=== PATIENT | male | born 1960 | race Caucasian/White ===

== ENCOUNTER 2016-10-05 06:54 | Emergency (ER) | payer OTHER ==
[~2016-10-05] VITALS: Ht 195.6 cm; Wt 122.5 kg
[~2016-10-05 06:54] MED LIST: PERCOCET 325 MG1 TA2 PO; SEROQUEL (MONO200 MG PO; SEROQUEL 25MG25 MG PO
--- NOTE | 2016-10-05 07:29 | ED GI/GU/ABDOMINAL COMPLAINT ---
History of Present Illness General Chief Complaint: General Adult Stated Complaint: " I BELIEVE I HAVE KIDNEY STONES" Source: patient Exam Limitations: no limitations Vital Signs & Intake/Output Vital Signs & Intake/Output Vital Signs Date Time Temp Pulse Resp B/P Pulse O2 O2 Flow FiO2 Ox Delivery Rate 10/05 0956 98.6 83 117/77 98 10/05 0706 96.8 128 20 118/60 97 Room Air Room Air Allergies Coded Allergies: hydrocodone (Intermediate, NAUSEA 10/05/16) Reconcile Medications Ibuprofen 800 MG TABLET 1 TAB PO TID PRN PAIN Oxycodone HCl/Acetaminophen (Percocet 5-325 MG Tablet) 5 MG-325 MG TABLET 1 TAB PO Q4-6 PRN BREAKTHROUGH PAIN Oxycodone HCl/Acetaminophen (Percocet 5-325 MG Tablet) 5 MG-325 MG TABLET 1 TAB PO Q4-6 PRN PAIN Quetiapine Fumarate (Seroquel) 200 MG TABLET 1 TAB PO QPM UNKNOWN (Reported) Quetiapine Fumarate (Seroquel) 25 MG TABLET 1 TAB PO QAM UNKNOWN (Reported) Tamsulosin HCl (Flomax) 0.4 MG CAP.ER.24H 1 CAP PO DAILY KIDNEY STONE Triage Note: PT TO ED WITH C/O RIGHT FLANK PAIN X 1 MONTH "I HAVE A KIDNEY STONE ON THE RIGHT FOR THE LAST YEAR AND NOW IT'S MOVING AROUND". LAST WEEK N/V/D, DENIES AT THIS TIME. Triage Nurses Notes Reviewed? yes Onset: Gradual Duration: waxing and waning, one month Timing: recent history Quality/Severity: sharpness, severe Location: right flank Radiation: RLQ Prior Abdominal Problems: similar symptoms Modifying Factors: Improves With: other (pain medication). HPI: This is a 56-year-old male with history of hypertension on metoprolol presents to the ER with chief complaint of right flank pain 1 month in duration. He states symptoms are fluctuating. Last week he had an episode of nausea and vomiting. He states he has an appointment to see ill health on Friday. He was prescribed Percocet by a doctor a few days ago but states he ran out and now he has nothing for the pain. Patient denies any fever or chills. Pain is in the right flank and radiates to his right lower quadrant. No diarrhea. No urinary symptoms. History of previous renal stone but no history of previous lithotripsy or stent. Past History Travel History Traveled to [place] past 21 day No Medical History Any Pertinent Medical History? 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 No Review of Systems Review of Systems Constitutional: Denies: chills, fever. EENTM: Reports: no symptoms. Respiratory: Denies: cough, short of breath. Cardiovascular: Denies: chest pain, palpitations. GI: Reports: abdominal pain, nausea, vomiting. Genitourinary: Denies: dysuria, frequency, hematuria. Musculoskeletal: Reports: no symptoms. Skin: Reports: no symptoms. Neurological/Psychological: Reports: no symptoms. Hematologic/Endocrine: Denies: bruising, bleeding, polyuria, polydipsia. Immunologic/Allergic: Denies: splenectomy. All Other Systems: Reviewed and Negative Physical Exam Physical Exam General Appearance: well developed/nourished, alert, awake, mild distress, obese Head: atraumatic, normal appearance Eyes: Bilateral: normal appearance, PERRL, EOMI. Ears, Nose, Throat, Mouth: hearing grossly normal, moist mucous membrane Neck: normal inspection, supple, full range of motion Respiratory: normal breath sounds, chest non-tender, no respiratory distress Cardiovascular: regular rate/rhythm Peripheral Pulses: 2+ radial (R), 2+ radial (L) Gastrointestinal: normal bowel sounds, soft, non-tender Back: CVA tenderness (L) Extremities: normal range of motion Neurologic/Psych: no motor/sensory deficits, awake, alert, oriented x 3, normal gait Skin: intact, normal color, warm/dry Core Measures ACS in differential dx? No Severe Sepsis Present: No Septic Shock Present: No Progress Differential Diagnosis: ureterolithiasis, UTI/pyelo Plan of Care: Orders Procedure Date/time Status COMPREHENSIVE METABOLIC PANEL 10/05 732 Complete CBC WITHOUT DIFFERENTIAL 10/05 732 Complete URINALYSIS 10/05 725 Complete Laboratory Tests 10/05/16 0924: Urinalysis HEAVY H, Urine Color YEL, Urine Clarity HAZY H, Urine pH 6.5, Ur Specific [place] 1.025, Urine Protein 30 H, Urine Ketones TRACE H, Urine Nitrite POS H, Urine Bilirubin NEG@ICTO, Urine Urobilinogen 1.0, Ur Leukocyte Esterase TRACE H, Ur Microscopic SEDIMENT EXAMINED, Urine RBC 1-3, Urine WBC 3- 5 H, Ur Epithelial Cells RARE, Urine Crystals 3+ CA OX H, Hyaline Casts 1-3 H , Granular Casts 1-3 H, Urine Mucus MOD H, Urine Hemoglobin TRACE-INTACT H, Urine Glucose NEG 10/05/16 0758: Anion Gap 15, Estimated GFR > 60, BUN/Creatinine Ratio 12.5, Glucose 149 H, Calcium 9.5, Total Bilirubin 1.0, AST 193 H, ALT 109 H, Alkaline Phosphatase 108, Total Protein 7.2, Albumin 3.3 L, Globulin 3.9, Albumin/Globulin Ratio 0.8 L, CBC w Diff NO MAN DIFF REQ, RBC 4.37 L, MCV 98.7 H, MCH 33.6 H, RDW 13.5, MPV 7.4, Gran % 72.9, Lymphocytes % 15.0 L, Monocytes % 7.7, Eosinophils % 3.5, Basophils % 0.9, Absolute Granulocytes 6.4, Absolute Lymphocytes 1.3, Absolute Monocytes 0.7 H, Absolute Eosinophils 0.3, Absolute Basophils 0.1, PUBS MCHC 34.0 LABS, U/S, TORADOL 60 MG IM. (CESILIA NICHOLE,NINOSKA) Diagnostic Imaging: Viewed by Me: Ultrasound. Discussed w/RAD: Ultrasound. Initial ED EKG: none Comments: PATIENT: NEO MCKEON PRESENT AGE: 56 PATIENT ACCOUNT NO: [id number] : 62 LOCATION: [facility] ORDERING PHYSICIAN: NINOSKA LOMAS MD SERVICE DATE: 10/05/16 EXAM TYPE: US - US-RENAL/KIDNEY EXAMINATION: US RETROPERITONEAL COMPLETE (RENAL) CLINICAL INFORMATION: Right flank pain for one month. COMPARISON: Abdominal ultrasound 11/05/2007 TECHNIQUE: Real-time imaging of the kidneys and bladder. Visualization is limited FINDINGS: RIGHT KIDNEY: 11.3 x 6.5 x 6.1 cm (SAG x AP x TRV). The kidney is normal in size, contour, and echogenicity. Renal cortical thickness is normal. No calculi or focal parenchymal lesions. No hydronephrosis. LEFT KIDNEY: 14.0 x 5.7 x 5.6 cm (SAG x AP x TRV). The kidney is normal in size, contour, and echogenicity. Renal cortical thickness is normal. Slight outward bulge of the upper pole cortex is noted but a discrete mass is not defined on these images. This could be related to a dromedary hump.. No calculi or focal parenchymal lesions noted on these images.. No hydronephrosis. BLADDER: Partially filled and normal. Bilateral ureteral jets are not demonstrated. Prevoid bladder volume is 48 mL. . IMPRESSION: No hydronephrosis or other acute abnormality is seen on the renal ultrasound. Detail is limited. DICTATED BY: RYAN COLORADO MD DATE/TIME DICTATED:10/05/16840 NURSE CLINICAL:KVNG DATE/TIME TRANSCRIBED:10/05/16840 CONFIDENTIAL, DO NOT COPY WITHOUT APPROPRIATE AUTHORIZATION. <Electronically signed in Other Vendor System> SIGNED BY: RYAN COLORADO MD 10/05 0854 Departure Departure Time of Disposition: 1015 Disposition: HOME OR SELF CARE Condition: Stable Clinical Impression Primary Impression: Renal colic on right side Referrals: PATIENT HAS NO PRIMARY CARE DR (PCP/Family) Additional Instructions: Take the ibuprofen, Flomax and Percocet as directed. Please follow-up with your doctor's appointment on Friday as well as the urology specialist listed. Drink plenty of fluids. Use the urinary strainer as instructed. Return to the ER as needed. Departure Forms: Customer Survey General Discharge Information Prescriptions: Current Visit Scripts Ibuprofen 1 TAB PO TID PRN PAIN #20 TAB Tamsulosin HCl (Flomax) 1 CAP PO DAILY #14 CAP Oxycodone HCl/Acetaminophen (Percocet 5-325 MG Tablet) 1 TAB PO Q4-6 PRN BREAKTHROUGH PAIN #12 Oxycodone HCl/Acetaminophen (Percocet 5-325 MG Tablet) 1 TAB PO Q4-6 PRN PAIN #12 TAB
[2016-10-05 08:21] LABS: ABSOLUTE BASOPHIL COUNT 0.1 /CUMM (0.0-0.2); ABSOLUTE EOSINOPHIL COUNT 0.3 /CUMM (0.0-0.7); ABSOLUTE GRANULOCYTE CT 6.4 /CUMM (1.4-6.5); ABSOLUTE LYMPH COUNT 1.3 /CUMM (1.2-3.4); ABSOLUTE MONOCYTE COUNT 0.7 /CUMM (0.10-0.60); BASOPHIL % 0.9 % (0.0-2.0); EOSINOPHIL % 3.5 % (0-5); GRANULOCYTE % 72.9 % (42.2-75.2); HEMATOCRIT 43.1 % (42-52); MEAN CORPUSCULAR HGB 33.6 PG (27.0-31.0); MEAN CORPUSCULAR VOLUME 98.7 FL (80.0-94.0); MEAN PLATELET VOLUME 7.4 FL (7.4-10.4); PLATELET COUNT 251 /CUMM (130-400); RBC DISTRIBUTION WIDTH 13.5 % (11.5-14.5); RED BLOOD CELL CT 4.37 /CUMM (4.70-6.10); WHITE BLOOD CELL COUNT 8.8 /CUMM (4.8-10.8)
--- NOTE | 2016-10-05 08:54 | ULTRASOUND REPORT ---
EXAMINATION: US RETROPERITONEAL COMPLETE (RENAL) CLINICAL INFORMATION: Right flank pain for one month. COMPARISON: Abdominal ultrasound 11/05/2007 TECHNIQUE: Real-time imaging of the kidneys and bladder. Visualization is limited FINDINGS: RIGHT KIDNEY: 11.3 x 6.5 x 6.1 cm (SAG x AP x TRV). The kidney is normal in size, contour, and echogenicity. Renal cortical thickness is normal. No calculi or focal parenchymal lesions. No hydronephrosis. LEFT KIDNEY: 14.0 x 5.7 x 5.6 cm (SAG x AP x TRV). The kidney is normal in size, contour, and echogenicity. Renal cortical thickness is normal. Slight outward bulge of the upper pole cortex is noted but a discrete mass is not defined on these images. This could be related to a dromedary hump.. No calculi or focal parenchymal lesions noted on these images.. No hydronephrosis. BLADDER: Partially filled and normal. Bilateral ureteral jets are not demonstrated. Prevoid bladder volume is 48 mL. . IMPRESSION: No hydronephrosis or other acute abnormality is seen on the renal ultrasound. Detail is limited.
[2016-10-05 09:56] VITALS: BP 117/77
[2016-10-05] MEDS ORDERED: IBUPROFEN800 M1 PO (10:16)
[2016-10-05] MEDS ORDERED: PERCOCET 5-3251 EACH PO ×2 (10:16)
[2016-10-05] MEDS ORDERED: FLOMAX0.4 M1 PO (10:16)
== END 2016-10-05 10:20 ==
LOC: ERH 06:54
PROVIDERS: Emergency Medicine
DX: N23 Unspecified renal colic (principal)
CPT/HCPCS: 76775; 81001; 96372; J1885